=== PATIENT | female | born 1980 | race Caucasian/White ===

== ENCOUNTER 2019-01-16 06:13 | Emergency (ER) | payer OTHER, MEDICAID, SELFPAY ==
[2019-01-16 06:20] VITALS: BP 127/87; PULSE 105; RESP 14; TEMP 36.9; O2SAT 98; BMI 32.3
--- NOTE | 2019-01-16 06:27 | ED.EYEPROB ---
HPI - Eye Problem General Chief complaint: Eye Problems Stated complaint: POSS PINK EYE, PAIN CAN'T GET CONTACT OUT Time Seen by Provider: 01/16/19 06:22 Source: patient Mode of arrival: ambulatory Limitations: no limitations History of Present Illness HPI Narrative: 38-year-old female here for evaluation of possible pinkeye. Patient states that she had redness in her eye started yesterday which worsened today. She does wear contact lenses. She states that her current contact lenses have been in for approximately a month. She states that they are ?monthly ?contact lenses she did not think that this would be a problem. Has quite a bit of discomfort, photophobia, could not get her contact lens out this morning. No fevers. No headaches. Related Data Previous Rx's Medication Instructions Recorded metronidazole 500 mg PO ONCE #4 09/25/11 progesterone micronized 100 mg PO BID #60 02/26/12 [Prometrium] mupirocin 0 robin TOPICAL TID #22 gm 09/27/17 levofloxacin See Rx Instructions .ROUTE 01/16/19 .COMPLEX #5 ml Allergies Allergy/AdvReac Type Severity Reaction Status Date / Time No Known Drug Allergies Allergy Verified 01/16/19 07:10 Review of Systems Constitutional Denies chills, Denies fever(s) and Denies headache(s) Eyes Reports blurry vision (Left eye), Reports irritation (Left eye) and Reports photophobia (Left eye) ENT Ears, Nose, Mouth, and Throat: Denies facial pain, Denies headache(s), Denies neck pain and Denies tinnitus Cardiovascular Denies chest pain and Denies dyspnea Respiratory Denies dyspnea Musculoskeletal Denies neck pain Integumentary/Breasts Denies new lesions and Denies rash Neurologic Denies behavioral changes and Denies headache(s) Psychiatric Denies behavioral changes Hematologic/Lymphatic Denies easy bleeding and Denies easy bruising PFS Medical History Healthy adult (Acute) Social History marital status: lives independently: Yes Social History marital status: lives independently: Yes Exam Initial Vital Signs Initial Vital Signs: Vital Signs Temperature 98.5 F 01/16/19 06:20 Pulse Rate 105 H 01/16/19 06:20 Respiratory Rate 14 01/16/19 06:20 Blood Pressure 127/87 01/16/19 06:20 Pulse Oximetry 98 01/16/19 06:20 Const General: cooperative, well groomed and No acute distress Orientation: alert, awake and oriented x3 HENMT Head: normal to inspection, normocephalic and atraumatic Ears: hearing grossly normal bilaterally Face and sinus: normal facial exam Mouth: oral mucosae normal Eyes Pupils: PERRL Other: Patient with redness scleral left eye, injected, chemosis, no uptake with fluorescein seen, no foreign body noted. Right eye unremarkable. Resp Effort & Inspection: normal respiratory effort Skin Lesions: no lesions Rashes: no rashes Neuro General: alert and awake Cognition: normal cognition Speech: speech normal Extrem General: capillary refill normal Psych Appearance: grossly normal and well kempt Course Orders Ordered: Discontinued Medications Erythromycin (Erythromycin Ophth Oint) 1 applic EYE-LEFT NOW ONE Stop: 01/16/19 07:01 Last Admin: 01/16/19 07:11 Dose: 1 applic Vital Signs - 8 hr 01/16/19 06:20 Temperature 98.5 F Pulse Rate 105 H Respiratory Rate 14 Blood Pressure 127/87 Pulse Oximetry 98 MDM - Eye Problem MDM Narrative Medical decision making narrative: This suspect patient's left eye symptoms are secondary to her contact lens use. This is concerning for corneal ulcer. This could also be conjunctivitis. Was given erythromycin ointment here in the emergency department to cover until she could go to the pharmacy to fill her prescription for antibiotic drops. Informed her that she should not were contact lenses until her symptoms resolve. She was given the phone number to contact so that she could set up a primary provider. She was also given phone number for the ophthalmology group [facility] to follow up tomorrow. She was given return precautions and follow-up instructions. She expressed understanding and agreement with plan. Discharge Plan Departure Patient Disposition: Home Clinical Impression: Conjunctivitis Qualifiers: Conjunctivitis type: unspecified Laterality: left Qualified Code(s): H10.9 - Unspecified conjunctivitis Instructions: How to Care for Your Contact Lenses, Conjunctivitis (Alternative Therapy) Activity Restrictions/Additional Instructions: No contact lens use until your symptoms resolve. You can contact the health resource recovery engineer here at the hospital with 360 help you establish a primary provider. I also recommend that tomorrow you contact the ophthalmology group here in town at [phone] for follow-up. Return to the emergency department for any new or worsening symptoms Prescriptions: New levofloxacin 0.5 % drops See Rx Instructions .ROUTE .COMPLEX Qty: 5 RF: 0 No Action metronidazole 500 MG tablet 500 mg PO ONCE Qty: 4 RF: 1 progesterone micronized [Prometrium] 100 MG capsule 100 mg PO BID Qty: 60 RF: 6 mupirocin 2 % ointment Topical TID Qty: 22 RF: 0 Referrals: Dl Arce MD [Primary Care Provider] -
[2019-01-16] MEDS: ERYTHROMYCIN OPHTH 1 GM OINT 1 APPLIC EYE-LEFT (07:11)
== END 2019-01-16 07:32 | disposition home or self-care (01) ==
PROVIDERS: Emergency Provider Emergency Medicine; Family Provider Family Medicine; PCP Family Medicine
DX: H10.9 Unspecified conjunctivitis (principal)
CPT/HCPCS: 99283

== ENCOUNTER 2022-09-21 07:16 | Emergency (ER) | payer OTHER, MEDICAID, SELFPAY ==
[2022-09-21 07:25] VITALS: BP 142/81; PULSE 102; RESP 16; TEMP 36.8; O2SAT 100; BMI 33.5
--- NOTE | 2022-09-21 07:27 | ED_ITS ---
HPI - General Adult General Stated complaint: lt. hand swollen/pain Time Seen by Provider: 09/21/22 07:18 Source: patient Mode of arrival: Ambulatory Limitations: no limitations History of Present Illness HPI narrative: Patient is a 42-year-old female who is here for evaluation of just over 24 hours worsening redness to her left index finger in the back of her left hand. She states she woke up yesterday morning starting to notice some redness and since that time things worsen. She reports no trauma. She states that it hurts only a small amount unless she hits the area. She has tried to put some ice on it which only makes the symptoms worse. She denies any fevers. Does causes her some discomfort with bending her left index finger. Related Data Previous Rx's Medication Instructions Recorded metronidazole 500 mg tablet 500 mg PO ONCE ##4 09/25/11 progesterone micronized 100 mg 100 mg PO BID ##60 02/26/12 capsule (Prometrium) mupirocin 2 % topical ointment 0 robin topical TID ##22 09/27/17 levofloxacin 0.5 % eye drops See Rx Instructions .Route 01/16/19 .COMPLEX #5 mL cephalexin 500 mg capsule 500 mg PO QID 7 days #28 caps 09/21/22 Allergies Allergy/AdvReac Type Severity Reaction Status Date / Time No Known Drug Allergies Allergy Verified 09/21/22 07:31 Review of Systems Constitutional Constitutional: Reports system reviewed and no additional complaints, except as documented Musculoskeletal Musculoskeletal: Reports system reviewed and no additional complaints, except as documented Integumentary/Breasts Skin/Breast: Reports system reviewed and no additional complaints, except as documented Neurologic Neurologic: Reports system reviewed and no additional complaints, except as documented Patient History Medical History Healthy adult Social History marital status: lives independently: Yes Exam Skin Other: Redness that encompasses the dorsum of the left index finger from the D IP joint proximal. It does extend proximal to the MCP joint. Does not appear to extend much distal to the MCP joint of the left ring finger. Neuro Sensory Exam: no sensory deficits noted Extrem Other: Patient does have redness and swelling to the dorsum of the left index finger. It does seem to be localized in between the MCP and PIP joint of this finger. It does not affect the volar aspect. Does not have any tenderness along the flexor side of the index finger or middle finger. Course Orders Ordered: Discontinued Medications Cephalexin HCl (Cephalexin 250 Mg Capsule) 500 mg PO NOW ONE Stop: 09/21/22 07:26 Medical Decision Making MDM Narrative Medical decision making narrative: Patient has obvious cellulitis to the dorsum of the left hand. It does not extend on the volar aspect. I have low suspicion for flexor tenosynovitis. There is no abscess seen on exam. No fluctuance. Low suspicion for septic joint. Low suspicion for gout. Patient denies any trauma. Low suspicion for fracture. Will hold on any radiologic studies. Will send home on antibiotics. The redness was outlined she was told to return to the emergency department if she has any new or worsening symptoms. She expressed understanding and ag reement. Discharge Plan Departure Patient Disposition: Home Clinical Impression: Cellulitis Instructions: DI for Cellulitis -- Adult Activity Restrictions/Additional Instructions: You can wash your hands like normal. Start taking the antibiotics as directed. Symptoms start to worsen or the redness expands outside of the line that was drawn here in the ER please return to the emergency department for further evaluation. Prescriptions: New cephalexin 500 mg capsule 500 mg PO QID 7 Days Qty: 28 0RF No Action metronidazole 500 MG tablet 500 mg PO ONCE Qty: 4 1RF progesterone micronized [Prometrium] 100 MG capsule 100 mg PO BID Qty: 60 6RF mupirocin 2 % ointment 0 robin Topical TID Qty: 22 0RF levofloxacin 0.5 % drops See Rx Instructions .ROUTE .COMPLEX Qty: 5 0RF Rx Instructions: 2 drp into both eyes every 2 hours while awake for 2 days then every 4 hours while awake for 5 days Stand Alone Forms: Patient Portal/API
[2022-09-21] MEDS: cephALEXin 250 MG CAPSULE 500 MG PO (07:31)
[2022-09-21 07:45] VITALS: PULSE 92; RESP 18; O2SAT 100
== END 2022-09-21 07:45 | disposition home or self-care (01) ==
PROVIDERS: Emergency Provider Emergency Medicine; Family Provider Family Medicine
DX: L03.012 Cellulitis of left finger (principal)
CPT/HCPCS: 99283

== ENCOUNTER 2023-06-16 10:43 | Emergency (ER) | payer OTHER, MEDICAID, SELFPAY ==
[2023-06-16 11:00] VITALS: BP 142/84; PULSE 90; RESP 18; TEMP 37.1; O2SAT 100; BMI 29.8
--- NOTE | 2023-06-16 11:06 | DI.RAD.S_ITS ---
PROCEDURE: XR RIBS RT MIN 3V W CXR 1V INDICATIONS: pain after fall one week ago TECHNIQUE: 2 views of the right ribs were acquired, along with a single view chest. COMPARISON: None. FINDINGS: Surgical changes and devices: None. Bones and chest wall: There is likely a minimally displaced fracture at the distal aspect of the right 7th rib. No other fractures or dislocations. Lungs and pleura: No pleural effusions or pneumothorax. Lungs appear clear. Mediastinum: Mediastinal contours appear normal. Heart size is normal. IMPRESSION: Questionable 7th rib fracture. No other acute fracture or dislocation. Dictated by: Valentina Thomas M.D. on 06/16/2023 at 11:39 Approved by: Valentina Thomas M.D. on 06/16/2023 at 11:41
[2023-06-16] MEDS: KETOROLAC 30 MG/ML VIAL IM (12:33)
[2023-06-16] MEDS: LIDOCAINE 5% PATCH 1 EACH TOP (12:33)
[2023-06-16 12:57] VITALS: BP 146/84; PULSE 94; RESP 16; TEMP 37.1; O2SAT 96
--- NOTE | 2023-06-16 12:57 | ED_ITS ---
HPI - Chest Pain <Ella Kramer PA-C - Last Filed: 06/16/23 13:02> General Chief Complaint: Chest Pain Stated Complaint: rt side rib pain Time Seen by Provider: 06/16/23 11:18 Source: patient Mode of arrival: Ambulatory Limitations: no limitations History of Present Illness HPI narrative: 42-year-old female presents to the ED with right-sided rib pain status post a fall sustained 3 days ago. Patient states that she fell off her bed, striking her right lower ribs against the nightstand. Unclear details of the fall otherwise. Patient appears somewhat sleepy in the ED. patient states that her right-sided lower ribs felt sore, however yesterday when she bent down to do some cleaning, her pain was exacerbated, which is why she came into the ED today. Patient denies chest pain, shortness of breath, vomiting. Related Data Previous Rx's Medication Instructions Recorded metronidazole 500 mg tablet 500 mg PO ONCE ##4 09/25/11 progesterone micronized 100 mg 100 mg PO BID ##60 02/26/12 capsule (Prometrium) mupirocin 2 % topical ointment 0 robin topical TID ##22 09/27/17 levofloxacin 0.5 % eye drops See Rx Instructions .Route 01/16/19 .COMPLEX #5 mL Allergies Allergy/AdvReac Type Severity Reaction Status Date / Time No Known Drug Allergies Allergy Verified 09/21/22 07:31 Review of Systems <Ella Kramer PA-C - Last Filed: 06/16/23 13:02> Constitutional Constitutional: Denies chills, Denies fatigue, Denies fever(s), Denies frequent falls, Denies lethargy and Denies weakness Eyes Eyes: Denies change in vision, Denies eye discharge, Denies irritation and Denies loss of vision ENT Ears, Nose, Mouth, and Throat: Denies change in voice, Denies dizziness, Denies neck pain, Denies sore throat and Denies throat swelling Cardiovascular Cardiovascular: Denies chest pain, Denies irregular heart rhythm, Denies lightheadedness, Denies palpitations, Denies dyspnea, Denies dyspnea on exertion and Denies orthopnea Respiratory Respiratory: Denies cough, Denies dyspnea, Denies dyspnea on exertion and Denies wheezing Gastrointestinal Gastrointestinal: Denies abdominal pain, Denies change in bowel habits, Denies diarrhea, Denies nausea and Denies vomiting Musculoskeletal Musculoskeletal: Denies neck pain and Denies numbness Comments: Right lower rib pain Integumentary/Breasts Skin/Breast: Denies pruritus, Denies erythema, Denies rash and Denies wounds Neurologic Neurologic: Denies behavioral changes, Denies confusion, Denies dizziness, Denies frequent falls, Denies loss of vision, Denies numbness and Denies weakness Psychiatric Psychiatric: Denies anxiety, Denies behavioral changes, Denies confusion, Denies depression, Denies homicidal ideation and Denies suicidal ideation Endocrine Endocrine: Denies fatigue, Denies flushing and Denies palpitations Hematologic/Lymphatic Hematologic/Lymphatic: Denies easy bruising Allergic/Immunologic Allergic/Immunologic: Denies urticaria, Denies throat swelling and Denies wheezing Patient History <Ella Kramer PA-C - Last Filed: 06/16/23 13:02> Medical History Healthy adult Social History marital status: lives independently: Yes Smoking Status: Former smoker Smoking Status: Former smoker tobacco type: cigarettes alcohol intake frequency: 0-2 drinks per day Substance Use Type: does not use and former substance user Exam <Ella Kramer PA-C - Last Filed: 06/16/23 13:02> Narrative Exam Narrative: Const General:?cooperative, healthy appearing and comfortable [facility] Head:?normal to inspection Ears:?hearing grossly normal bilaterally Nose:?external nose normal Face and sinus:?normal facial exam and sinuses nontender Mouth:?oral mucosae normal Throat:?posterior oropharynx normal Eyes General:?appearance normal, both eyes and all related structures Neck Neck:?normal visual inspection and no lymphadenopathy noted Resp Effort & Inspection:?normal respiratory effort Auscultation:?clear to auscultation bilaterally Cardio Rate:?regular rate Rhythm:?regular rhythm GI Abdomen is soft, nondistended, nontender to palpation. Musculoskeletal Tenderness to palpation of right laterl, lower rib. No bruising, erythema. Neuro General:?patient alert, patient awake and patient oriented x3 Initial Vital Signs Initial Vital Signs: Vital Signs Temperature 98.7 F 06/16/23 11:00 Pulse Rate 90 06/16/23 11:00 Respiratory Rate 18 06/16/23 11:00 Blood Pressure 142/84 H 06/16/23 11:00 Pulse Oximetry 100 06/16/23 11:00 Oxygen Delivery Method Room Air 06/16/23 11:00 <Sri Murphy DO - Last Filed: 06/16/23 13:17> Initial Vital Signs Initial Vital Signs: Vital Signs Temperature 98.7 F 06/16/23 11:00 Pulse Rate 90 06/16/23 11:00 Respiratory Rate 18 06/16/23 11:00 Blood Pressure 142/84 H 06/16/23 11:00 Pulse Oximetry 100 06/16/23 11:00 Oxygen Delivery Method Room Air 06/16/23 11:00 Course <Ella Kramer PA-C - Last Filed: 06/16/23 13:02> Orders Ordered: ED Orders 06/16/23 11:06 XR ribs RT min 3V w CXR1V Stat Discontinued Medications Ketorolac Tromethamine (Ketorolac 30 Mg/Ml Vial) 30 mg IM NOW ONE Stop: 06/16/23 12:24 Last Admin: 06/16/23 12:33 Dose: 30 mg Documented By: NOMI Lidocaine (Lidocaine 5% Patch) 1 each TOP NOW ONE Stop: 06/16/23 12:24 Last Admin: 06/16/23 12:33 Dose: 1 each Documented By: NOMI Vital Signs Vital signs: Vital Signs - 8 hr 06/16/23 11:00 06/16/23 12:57 Temperature 98.7 F 98.8 F Pulse Rate 90 94 H Respiratory Rate 18 16 Blood Pressure 142/84 H 146/84 H Pulse Oximetry 100 96 Oxygen Delivery Method Room Air Room Air <Sri Murphy DO - Last Filed: 06/16/23 13:17> Orders Ordered: ED Orders 06/16/23 11:06 XR ribs RT min 3V w CXR1V Stat Discontinued Medications Ketorolac Tromethamine (Ketorolac 30 Mg/Ml Vial) 30 mg IM NOW ONE Stop: 06/16/23 12:24 Last Admin: 06/16/23 12:33 Dose: 30 mg Documented By: NOMI Lidocaine (Lidocaine 5% Patch) 1 each TOP NOW ONE Stop: 06/16/23 12:24 Last Admin: 06/16/23 12:33 Dose: 1 each Documented By: NOMI Vital Signs Vital signs: Vital Signs - 8 hr 06/16/23 11:00 06/16/23 12:57 Temperature 98.7 F 98.8 F Pulse Rate 90 94 H Respiratory Rate 18 16 Blood Pressure 142/84 H 146/84 H Pulse Oximetry 100 96 Oxygen Delivery Method Room Air Room Air MDM - Chest Pain <Ella Kramer PA-C - Last Filed: 06/16/23 13:02> MDM Narrative Medical decision making narrative: 42-year-old female presents to the ED with right-sided rib pain status post a fall sustained 3 days ago. Concern for rib fracture versus rib contusion versus intra-abdominal injury versus other. Physical exam is reassuring for a benign abdomen. Will obtain x-rays to rule out a fracture. X-ray shows possible right-sided lateral 7th rib fracture. Patient was given ketorolac for pain. Patient was provided with incentive spirometer prevent pneumonia. Recommend continued use of ibuprofen, lidocaine patches for pain control. ED return precautions discussed with patient. Patient verbalized understanding. Medical records reviewed: Yes Discharge Plan Departure Patient Disposition: Home Clinical Impression: Fracture of rib Instructions: DI for Rib Fracture Activity Restrictions/Additional Instructions: You were evaluated in the ED today for right-sided rib pain. Your x-ray shows a fracture of the 7th rib on the right side. You were given an injection of Toradol for pain control. Please continue to take ibuprofen 800 mg 3 times a day with food for pain control. You were also being sent home with a spirometer to ensure that you do not develop pneumonia. Return to the ED if you have worsening symptoms, chest pain, shortness of breath. Prescriptions: No Action metronidazole 500 MG tablet 500 mg PO ONCE Qty: 4 1RF progesterone micronized [Prometrium] 100 MG capsule 100 mg PO BID Qty: 60 6RF mupirocin 2 % ointment 0 robin Topical TID Qty: 22 0RF levofloxacin 0.5 % drops See Rx Instructions .ROUTE .COMPLEX Qty: 5 0RF Rx Instructions: 2 drp into both eyes every 2 hours while awake for 2 days then every 4 hours while awake for 5 days Stand Alone Forms: Patient Portal/API ED Sign-out <Sri Murphy DO - Last Filed: 06/16/23 13:17> Cosign ED Attending Cossamanthaature Attestation: I was immediately available in the department for consultation.
== END 2023-06-16 12:58 | disposition home or self-care (01) ==
PROVIDERS: Emergency Provider Student in an Organized Health Care Education/Training Program; Family Provider Family Medicine
DX: S22.31XA Fracture of one rib, right side, initial encounter for closed fracture (principal); W06.XXXA Fall from bed, initial encounter
CPT/HCPCS: 71101; 96372; 99283; J1885

== ENCOUNTER 2023-11-15 00:11 | Emergency (ER) | payer OTHER, MEDICAID, SELFPAY ==
[2023-11-15 00:22] VITALS: BP 142/91; PULSE 91; RESP 18; TEMP 36.4; O2SAT 100; BMI 29.0
--- NOTE | 2023-11-15 00:29 | ED_ITS ---
HPI - Back Pain/Injury General Chief Complaint: Back Pain/Injury Stated Complaint: left side abd pain Time Seen by Provider: 11/15/23 00:18 Source: patient Mode of arrival: Ambulatory Limitations: no limitations History of Present Illness HPI Narrative: 43-year-old female here for evaluation of left-sided flank/abdominal pain. States it has been going on for the past couple weeks but she just has not been in to have it evaluated. Last evening she thought maybe the symptoms worsened. No fevers. No vomiting. No urinary symptoms. No change in bowel habits. No vaginal bleeding. No skin changes. Related Data Previous Rx's Medication Instructions Recorded metronidazole 500 mg tablet 500 mg PO ONCE ##4 09/25/11 progesterone micronized 100 mg 100 mg PO BID ##60 02/26/12 capsule (Prometrium) mupirocin 2 % topical ointment 0 robin topical TID ##22 09/27/17 levofloxacin 0.5 % eye drops See Rx Instructions .Route 01/16/19 .COMPLEX #5 mL Allergies Allergy/AdvReac Type Severity Reaction Status Date / Time No Known Drug Allergies Allergy Verified 09/21/22 07:31 Review of Systems Review of Systems Narrative: See HPI Patient History Medical History Healthy adult Social History marital status: lives independently: Yes Smoking Status: Former smoker Smoking Status: Former smoker tobacco type: cigarettes alcohol intake frequency: 0-2 drinks per day Substance Use Type: former substance user and marijuana Exam Initial Vital Signs Initial Vital Signs: Vital Signs Temperature 97.6 F 11/15/23 00:22 Pulse Rate 91 H 11/15/23 00:22 Respiratory Rate 18 11/15/23 00:22 Blood Pressure 142/91 H 11/15/23 00:22 Pulse Oximetry 100 11/15/23 00:22 Oxygen Delivery Method Room Air 11/15/23 00:22 HENMT Head: normal to inspection and normocephalic GI Inspection: normal to inspection and non-distended Palpation: soft, No firm, No guarding and No tender Back/Spine/Pelvis Back: No CVA tenderness Skin General: no rashes or lesions noted Course Orders Ordered: ED Orders 11/15/23 00:30 CT abdomen pelvis wo con Stat 11/15/23 00:36 Complete Blood Count AUTO DIFF Stat Comprehensive Metabolic Panel Stat Lipase Stat Test Serum,Qual Stat 11/15/23 02:03 Urine Microscopic Stat Vital Signs Vital signs: Vital Signs - 8 hr 11/15/23 00:22 11/15/23 02:24 11/15/23 02:25 Temperature 97.6 F 98.1 F Pulse Rate 91 H 70 Respiratory Rate 18 16 Blood Pressure 142/91 H 168/85 H Pulse Oximetry 100 100 Oxygen Delivery Method Room Air Room Air MDM - Back Pain/Injury Lab Data Attestation: I reviewed the patient's lab results. 11/15/23 00:36 11/15/23 00:36 Labs: Lab Results 11/15/23 11/15/23 Range/Units 00:36 02:03 WBC 6.9 (4.5-11.0) X10^3/uL RBC 4.01 (4.0-5.2) X10^6/uL Hgb 12.5 (12.0-16.0) g/dL Hct 36.5 (36-46) % MCV 90.9 (80-100) fL MCH 31.1 (26-34) PG MCHC 34.2 (30-36) % RDW 13.4 (11.6-14.8) % Plt Count 347 (150-400) X10^3/uL Neut % (Auto) 46.4 L (50-75) % Lymph % (Auto) 39.0 (25-40) % Hendry % (Auto) 9.3 (3-14) % Eos % (Auto) 4.4 H (2-4) % Baso % (Auto) 0.9 (0-2) % Neut # (Auto) 3200 (6785-0701) /uL Lymph # (Auto) 2700 (8526-8407) /uL Hendry # (Auto) 600 (0-900) /uL Eos # (Auto) 300 (0-450) /uL Baso # (Auto) 100 (0-100) /uL Sodium 136 L (137-145) mmol/L Potassium 3.8 (3.4-5.1) mmol/L Chloride 107 (98-107) mmol/L Carbon Dioxide 30 (22-32) mmol/L BUN 17 (7-17) mg/dL Creatinine 0.71 (0.52-1.04) mg/dL Estimated GFR > 60 (>60) mL/min BUN/Creatinine Ratio 23.9 H (6-22) Glucose 80 (70-100) mg/dL Calcium 8.9 (8.4-10.2) mg/dL Total Bilirubin 0.5 (0.2-1.3) mg/dL AST 19 (14-36) IU/L ALT 17 (<35) IU/L Alkaline Phosphatase 67 (38-126) U/L Total Protein 7.0 (6.3-8.2) g/dL Albumin 4.1 (3.5-5.0) g/dL Globulin 2.9 (1.7-4.1) g/dL Albumin/Globulin Ratio 1.4 (1.0-2.8) Lipase 35 (23-300) U/L Serum , Qual Negative (Negative) Urine RBC None seen (0-5/HPF) Urine WBC None seen (0-5/HPF) Ur Squamous Epith Cells 0-1 /hpf (0-5/HPF) Urine Bacteria None seen (None) Ur Culture Indicated? Cult not indicated Vol Urine Centrifuged 10ml (spun) Point of Care Testing Test Results Negative Urine Dip Bedside Urine Glucose Negative Bedside Urine Bilirubin - Negative Bedside Urine Ketone - Negative Urine Specific Weott 1.025 Bedside Urine Occult Blood - Negative Bedside Urine pH 6.0 Bedside Urine Protein - Negative Bedside Urine Urobilinogen - Negative Bedside Urine Nitrite - Negative Bedside Urine Leukocytes +/- [address] scan - abdomen/pelvis: Radiologist's Impression: Questionable small gallstones/stones Moderate stool in the colon Appendix could not be individualized and therefore can not be evaluated No evidence of urinary tract stone, hydronephrosis or perinephric fat stranding MDM Narrative Medical decision making narrative: Patient appears to be under the influence of some sort of intoxicating substance. Her exam is benign. Skin changes are unremarkable. Labs are unremarkable. CT scan shows no acute pathology. Discuss this with the patient. Will discharge patient home with return precautions. She expressed understanding and agreement. Discharge Plan Departure Patient Disposition: Home Clinical Impression: Abdominal pain Instructions: DI for Abdominal Pain-Adult Activity Restrictions/Additional Instructions: Your workup here in the emergency department is very reassuring. There was no signs of any infection. There are no kidney stones. Was nothing surgical found on the CT scan. Recommend that you contact your primary care doctor for a. Return to the emergency department for new symptoms Prescriptions: No Action metronidazole 500 MG tablet 500 mg PO ONCE Qty: 4 1RF progesterone micronized [Prometrium] 100 MG capsule 100 mg PO BID Qty: 60 6RF mupirocin 2 % ointment 0 robin Topical TID Qty: 22 0RF levofloxacin 0.5 % drops See Rx Instructions .ROUTE .COMPLEX Qty: 5 0RF Rx Instructions: 2 drp into both eyes every 2 hours while awake for 2 days then every 4 hours while awake for 5 days Stand Alone Forms: Patient Portal/API
--- NOTE | 2023-11-15 00:30 | DI.CT.S_ITS ---
PROCEDURE: CT ABDOMEN PELVIS WO CON INDICATIONS: L sided flank pain eval for stone TECHNIQUE: Axial sections were acquired from the lung bases to the pubic symphysis. Coronal and sagittal reformats were performed. For radiation dose reduction, the following was used: automated exposure control, adjustment of mA and/or kV according to patient size. COMPARISON: None. FINDINGS: Image quality: Diagnostic. Lower Chest: No significant findings. URINARY: Right Kidney: No stones or hydronephrosis. Right Ureter: No hydroureter. Left Kidney: No stones or hydronephrosis. Left Ureter: No hydroureter. Bladder: Normal wall thickness. No stones. ABDOMEN: Liver: No contour-deforming solid mass. Gallbladder: No radiopaque gallstones or wall thickening. Biliary ducts: No biliary dilation. Pancreas: No ductal dilation. Spleen: Size is within normal limits. Adrenal Glands: No adrenal nodules. Stomach and Bowel: Moderate fecal debris throughout the colon Peritoneum: No abnormal intraperitoneal fluid. No free air. Ventral Wall: No hernia. Abdominal Nodes: No enlarged retroperitoneal or mesenteric lymph nodes. Vessels: Aorta and inferior vena cava are normal in size. PELVIS: Pelvic Organs: Unremarkable. Pelvic Nodes: Unremarkable. Miscellaneous: No inguinal hernias are seen. Bones: Unremarkable. IMPRESSION: No obstructing stones or hydronephrosis. Moderate fecal debris throughout the colon. No obstruction Approved by: Zachary Agee M.D. on 11/15/2023 at 1:38
[2023-11-15 01:26] LABS: Alanine Aminotransferase 17 IU/L (<35); Albumin 4.1 g/dL (3.5-5.0); Albumin Globulin Ratio 1.4 (1.0-2.8); Alkaline Phosphatase 67 U/L (38-126); Aspartate Aminotransferase 19 IU/L (14-36); BUN Creatinine Ratio 23.9 (6-22); Bilirubin Total 0.5 mg/dL (0.2-1.3); Blood Urea Nitrogen 17 mg/dL (7-17); Calcium 8.9 mg/dL (8.4-10.2); Carbon Dioxide 30 mmol/L (22-32); Chloride 107 mmol/L (98-107); Estimated Glomerular Filt Rate > 60 mL/min (>60); Globulin 2.9 g/dL (1.7-4.1); Glucose 80 mg/dL (70-100); HEMOLYSIS < 15 (0-50); Lipase 35 U/L (23-300); Potassium 3.8 mmol/L (3.4-5.1); Sodium 136 mmol/L (137-145)
[2023-11-15 01:29] LABS: Add Manual Diff / Slide Review NO; Basophils Absolute Auto 100 /uL (0-100); Basophils Percent Auto 0.9 % (0-2); Eosinophils Absolute Auto 300 /uL (0-450); Eosinophils Percent Auto 4.4 % (2-4); Hematocrit 36.5 % (36-46); Hemoglobin 12.5 g/dL (12.0-16.0); Lymphocytes Absolute Auto 2700 /uL (1100-4500); Mean Corpuscular HGB Conc 34.2 % (30-36); Mean Corpuscular Hemoglobin 31.1 PG (26-34); Mean Corpuscular Volume 90.9 fL (80-100); Monocytes Absolute Auto 600 /uL (0-900); Monocytes Percent Auto 9.3 % (3-14); Neutrophils Absolute Auto 3200 /uL (1500-7000); Neutrophils Percent Auto 46.4 % (50-75); Platelet Count 347 X10^3/uL (150-400); Red Blood Cell Count 4.01 X10^6/uL (4.0-5.2); Red Cell Distribution Width 13.4 % (11.6-14.8); White Blood Cell Count 6.9 X10^3/uL (4.5-11.0)
[2023-11-15 01:39] LABS: Pregnancy Test Serum,Qual Negative (Negative)
[2023-11-15 02:17] LABS: Bacteria Urine None Seen; Culture Indicated Urine Cult Not Indicated; RBC Urine None Seen (0-5/HPF); Squamous Epithelial Cell Urine 0-1 /HPF (0-5/HPF); Urine Volume 10mL (spun); WBC Urine None Seen (0-5/HPF)
[2023-11-15 02:24] VITALS: BP 168/85; PULSE 70; RESP 16; O2SAT 100
[2023-11-15 02:25] VITALS: TEMP 36.7
== END 2023-11-15 02:39 | disposition home or self-care (01) ==
PROVIDERS: Emergency Provider Emergency Medicine; Family Provider Family Medicine
DX: R10.9 Unspecified abdominal pain (principal)
CPT/HCPCS: 36415; 74176; 80053; 81003; 81015; 81025; 83690; 84703; 85025; 99284